=== PATIENT | male | born 1980 | race Caucasian/White ===

== ENCOUNTER → 2017-02-07 | Day surgery (SDC) | payer OTHER, BC ==
--- NOTE | 2017-02-04 11:32 | History and Physical ---
History & Physical Date Feb 04, 2017. Chief Complaint Left knee pain History of Present Illness The patient is a 36 year old male with complaints of left knee pain, swelling, and weakness s/p fall while in [place] on a business trip. Patient fell down the stairs. Reports being unable to perform a straight leg raise, swelling, bruising. Denies prior injury to left lower extremity. Denies numbness, tingling, or calf pain in the lower extremities. Was provided with a knee immobilizer and crutches in the ER in [place]. Past Medical/Surgical History Past Medical History: 1. GERD 2. Obesity Past Surgical History: 1. [place] tooth extraction Famil History: Non-contributory Social History: Patient lives at home with his family in a safe environment, denies ETOH, tobacco, or illegal drug use. Is a retail sales teammate by trade. Additional History Hepatic Disease: No Endocrine Disorder: No Kidney Disease: No Hypertension: No Heart Disease: No Bleeding Tendencies: No Infectious Diseases: No Allergies Coded Allergies: Bacitracin (Verified Allergy, Mild, RASH, 02/04/17) Neomycin (Verified Allergy, Mild, RASH, 02/04/17) Polymyxin B (Verified Allergy, Mild, RASH, 02/04/17) Home Medications Scheduled Multiple Vitamin (Multivitamin), 1 TAB PO DAILY Omeprazole (Prilosec), 1 CAP PO DAILY Miscellaneous Medications None (Patient States No Home Meds) Physical Examination Skin: warm/dry, no rash Eyes: normal inspection, sclerae normal ENT: + pertinent finding (large tonsils, without exudate or erythema) Head: normocephalic, atraumatic Respiratory/Chest: lungs clear, normal breath sounds, no respiratory distress Cardiovascular: regular rate, rhythm, no edema, no murmur Abdomen / GI: normal bowel sounds, non tender Extremities: + pertinent finding (left knee reveals swelling, ecchymosis. Patella high-riding in the trochlea, unable to perform a straight leg raise, deformity noted mid-substance of left patella, ligamentously stable regarding cruciate and collateral ligaments, calf supple/non-tender, hip and ankle atraumatic ) Neurologic/Psych: no motor/sensory deficits, alert, oriented x 3 Addiitonal Comments: Xray of left knee reveals a high riding patella on lateral view, no evidence of fracture or degenerative change Ultrasound of the left knee reveals a mid-substance tear of the left patella Diagnosis Left patellar tendon rupture Plan of Treatment Fred will undergo a Left patellar tendon repair by Dr. John Mendez MD from [facility] on 02/07/17 at the [facility]. He will obtain pre-op labs CBC, Lytes, BUN, Creatinine, EKG at the [facility] outpatient lab today. He will have a phone interview with PAT office today. Post-operatively he will use Lovenox 40mg once daily x 2 weeks and Percocet 5/325mg for post-op pain. He already has crutches. PT will begin 2 days after surgery [address] [facility] and a 2 weeks follow up with Dr. Mendez for suture removal. He will discontinue his NSAIDs now.
[2017-02-04 12:14] LABS: BASO % 0.1 %; BASO ABS # 0.01 K/uL (0-0.2); COMPLETE YES; HEMATOCRIT 45.1 % (42-52); IG% 0.2 %; LYMPH % 15.9 %; LYMPH ABS # 1.78 K/uL (1.2-3.4); MEAN CELL VOLUME 87.4 fL (80-100); MEAN CORPUSCULAR HEMOGLOBIN 31.8 pg (25-34); MEAN CORPUSCULAR HGB CONC 36.4 g/dl (32-36); MEAN PLATELET VOLUME 10.2 fL (7.4-10.4); MONO % 12.9 %; NEUT % 69.9 %; PLATELET COUNT 254 K/uL (130-400); RED BLOOD COUNT 5.16 M/uL (4.7-6.1)
[2017-02-04 12:22] LABS: INR 1.1 (0.9-1.1); PROTHROMBIN TIME (PATIENT) 11.8 SECONDS (9.0-12.0)
[2017-02-04 12:43] LABS: BLOOD UREA NITROGEN 18 mg/dl (7-18); BUN/CREATININE RATIO 19.8 (10-20); CALCIUM 9.1 mg/dl (8.5-10.1); CARBON DIOXIDE 25 mmol/L (21-32); CHLORIDE 106 mmol/L (98-107); CREATININE 0.93 mg/dl (0.60-1.40); GLUCOSE 94 mg/dl (70-99); POTASSIUM 4.1 mmol/L (3.5-5.1); SODIUM 139 mmol/L (136-145)
[2017-02-04 13:59] VITALS: BMI 42.0
[~2017-02-07] VITALS: Ht 180.3 cm; Wt 136.4 kg
[~2017-02-07] MED LIST: ACET-1256 PO; ATROPINE SULFATE 0.1 MG/ML 5ML SYR IV PRN; BUPIVACAINE 0.25% 30 ML VIAL ONE; BUPIVACAINE 0.5 % 5 MG/1 ML MPF 30ML VIAL ONE; DEXAMETHASONE SOD INJ 4 MG/ML VIAL ONE; ENOX40IN SQ; EpHEDrine SULFATE INJ 50 MG/ML AMP IV PRN; FENTANYL CITRATE INJ 50 MCG/1 ML 2 ML VIAL ONE; FLUMAZENIL 0.1 MG/1 ML 10 ML VIAL IV PRN; IBUP-1450 PO; KETOROLAC TROMETHAMINE 15 MG/ML VIAL ONE; KETOROLAC TROMETHAMINE 30 MG/ML VIAL IV. PRN; LABETALOL HCL IV 5 MG/ML 20ML IV ONE; LABETALOL HCL IV 5 MG/ML 20ML IV PRN; LACT10CA3 PO; LACTATED RINGER'S 1000ML 1,000 ML IV SCH; LANSOPRAZOLE PO; LIDOCAINE HCL 2% 2 ML VIAL (20MG/ML) ONE; LIDOCAINE/EPINEPHRINE 1% 20 ML VIAL ONE; METOCLOPRAMIDE HCL INJ 5 MG/ML 2 ML VIAL IV PRN; MIDAZOLAM HCL 1 MG/ML 2ML VIAL ONE; MULT-506 PO; MoRPHine SULFATE 2 MG/ML CARP IV PRN; NALOXONE HCL 0.4 MG/1 ML VIAL/CARP IV PRN; NURSING VERBAL MED ORDER ONE; OMEG10007 PO; ONDANSETRON INJ 2 MG/ML 2 ML VIAL IV PRN; ONDANSETRON INJ 2 MG/ML 2 ML VIAL ONE; OXYC-57 PO; PROMETHAZINE HCL INJ 12.5 MG in SODIUM CHLORIDE 0.9% 50ML 50 ML IV PRN; PROPOFOL IV EMULSION 10 MG/ML 20 ML VIAL IV ONE; SODIUM CHLORIDE 0.9% 1000ML 1,000 ML IV SCH
[2017-02-07 09:37] VITALS: BP 152/110; PULSE 115; TEMP 37.1; O2SAT 97; Ht 180.3 cm; Wt 136.4 kg
[2017-02-07] MEDS: CEFAZOLIN 3000 MG/65 ML D5W IV SCH ×2 (09:57→11:30)
--- NOTE | 2017-02-07 10:46 | History & Physical Bridge Note ---
H&P Re-Evaluation Bridge Note: I have examined the patient, reviewed the History & Physical and in the interval since the performance of the History & Physical I have noted the following changes of clinical significance: No changes noted
--- NOTE | 2017-02-07 11:56 | Discharge Instructions ---
Discharge Instructions Date of Service Feb 07, 2017. Admission Reason for Admission: Left Knee Patellar Tendon Rupture Discharge Discharge Diagnosis / Problem: s/p left patellar tendon repair Discharge Goals Goal(s): Decrease discomfort, Improve function, Increase independence Activity Recommendations Activity Limitations: as noted below Lifting Limitations: until after follow-up appointment Shower/Bathe: keep incision dry Driving or Machine Use: when cleared by Dr. Mendez Weightbearing Status: Left weightbearing (as tolerated with brace on and locked in full extension) . Instructions / Follow-Up Instructions / Follow-Up DIET: * Resume previous diet. MEDICATIONS: * Please take your prescriptions as instructed at your pre-op appointment and/ or see medication discharge instructions listed above. * If concerns develop, call your physician's office at . SPECIAL CARE INSTRUCTIONS: * YOU MAY BE FULL WEIGHTBEAR BEGINNING 02/08/17 WITH BRACE LOCKED IN FULL EXTENSION AND CRUTCHES FOR ASSIST * Ice/Elevate as instructed. * Keep dressing clean, dry, intact. * Your surgical extremity may be discolored due to prepping agents used on the skin. A bluish-green tint is a normal variant and should not cause alarm. Call your doctor at [phone] if: * Temperature above 101 degrees * Pain not relieved by pain medicine ordered * There is increased drainage or redness from any incision * You have any unanswered questions, problems or concerns. FOLLOW UP VISIT: * If not already scheduled, please call the office at to schedule a follow-up appointment. Current Hospital Diet Patient's current hospital diet: Discharge Diet Recommended Diet: Regular Diet Pending Studies Studies pending at discharge: no Medical Emergencies . Who to Call and When: Medical Emergencies: If at any time you feel your situation is an emergency, please call 911 immediately. . Non-Emergent Contact Non-Emergency issues call your: Primary Care Provider . "Provider Documentation" section prepared by John Nicole. . VTE Core Measure Inpt VTE Proph given/why not?: [facility] Drug Monitoring Program Search Results: no issues identified
--- NOTE | 2017-02-07 13:33 | [facility] Post Operative Brief Note ---
Immediate Operative Summary Operative Date Feb 07, 2017. Pre-Operative Diagnosis Left Patellar Tendon Rupture Post-Operative Diagnosis Left Patellar Tendon Rupture Procedure(s) Performed Left Knee Patellar Tendon Repair (Open) Surgeon Dr Mendez Billet Heater Surgeon(s) Nghia Calhoun MD Estimated Blood Loss 10CC Findings Complex tear of the Left Patellar tendon, extending into the medial and lateral retinaculum. Fluids (cc crystalloids) 1200 Specimens A: None per surgeon Drains n/a Anesthesia LMA & Adductor block Complication(s) None Disposition Recovery Room / PACU
--- NOTE | 2017-02-07 13:37 | [facility] Operative Report ---
Operative Report Operative Date Feb 07, 2017. Pre-Operative Diagnosis Left Patellar Tendon Rupture Post-Operative Diagnosis Left Patellar Tendon Rupture Procedure(s) Performed Left Knee Patellar Tendon Repair (Open) Surgeon Dr Mendez Ammonia Print Operator Surgeon(s) Nghia Calhoun MD Estimated Blood Loss 10CC Findings Complex tear of the Left Patellar tendon, extending into the medial and lateral retinaculum. Partial tear off the medial Patella, with horizontal shear of the remainder of the tendon which extended down to and off the Tibial tubercle. Fluids 1200 Specimens A: None per surgeon Drains n/a Anesthesia LMA & Adductor block Complication(s) None Disposition Recovery Room / PACU Indications The patient is a 36 year old male who sustained a left patellar tendon rupture . After a lengthy discussion with her regarding her treatment options of conservative versus surgical intervention, the patient has elected to proceed with surgical intervention. The patient understands the risks of surgery, which include but are not limited to: bleeding, infection, re-operation, damage to nerves and arteries, continued pain, decreased level of activity, knee stiffness, and DVT. The patient understands all of these instructions and explanations, all of their questions have been satisfactorily addressed. The patient has elected to proceed with surgery and the informed consent was signed. Description of Procedure IMPLANTS: 1) 2.9 MM Double loaded JuggerKnot Thayne at Tibia Tubercle (Biomet). 2) 1.5 MM JuggerKnot Thayne at Medial Patella (Biomet). PROCEDURE: The patient was taken to the Operating Room and placed in the supine position on the operating table. After general anesthetic was administered a multidisciplinary time-out was performed identifying my initials on the left lower limb as the correct and operative limb. Prior to the incision being made , 3 grams of intravenous Ancef were given. The left leg was prepped and draped in the standard orthopaedic sterile fashion. The planned longitudinal incision approximately 10 cm, centered about the patellar tendon defect and in the midline was marked from the tibial tubercle to the proximal aspect of the patella. The incision was injected with a 50:50 mixture of 1% Lidocaine plain and 0.5% Marcaine for a total of 10 cc. The skin incision was made down to the patellar tendon fascia and the defect was easily found with noted hematoma. Large skin flaps were made both medially and laterally. The hematoma was evacuated with suction and irrigation. The wound was copiously irrigated. The patellar tendon had partially a. The medial aspect of the patella and had a horizontal shearing effect with the majority of the tendon still attached to the patella but came off distally with a small portion still attached to the fat pad. The hematoma was debrided off the medial aspect of the patella for better expose and anchor placement. The knee capsule was closed with 0 Vicryl's. The medial and lateral retinaculum had #0 Vicryl placed in a [id number]-vples fashion for later tying. The distal portion of the patella was prepped with rongeur and curettes. With the knee in a slightly flexed position a 1.5 mm JuggerKnot anchor was placed medially at the patellar tendon insertion on the patella. Then 1 strand was passed through the remaining distal torn portion of the patellar tendon and the other limb was passed through the proximal aspect of the attached patellar tendon to the patella and used as tension, but later tied together. A 2.9 mm JuggerKnot anchor double loaded was placed in the tibial tubercle in a standard fashion. One limb of each suture was run in a Krakw type fashion up each side of the patellar tendon attempting to capture both the proximal and distal fibers. Each limb was then tied together proximally. The remaining 2 proximal suture limbs were used to tension the patellar tendon down to the tibial tubercle with the leg in full extension. The ends were passed through the most distal aspect of the torn patellar tendon and with the tendon reduced tied. The medial border was further reinforced by running one of the suture limbs proximally and tying it together with the 1.5 mm anchor after it had been tied. There was no tension on the repair with the flexed past 90 degrees. The 0 Vicryl sutures in the retinaculum were sequentially tied. 2-0 Vicryl was used to close the overlying fascia. The wound was copiously irrigated throughout the case. The subcutaneous layer was closed with 3-0 Vicryl. The skin was closed 4-0 Monocryl in a running subcuticular fashion area and Dermabond. Once the Dermabond was dry, the incision was covered with 4x4's, ABD, sterile cast padding, an PRAVEENA, and a range of motion knee brace locked in extension. The sponge and needle counts were correct. POST-OP INSTRUCTIONS: Pain medicine prescription was given pre-operatively to be taken as needed. He will be weight bearing as tolerated with the brace locked in extension on the left lower extremity. The patient will start physical therapy in 2 days. The patient will follow up with me in 10-15 days. I attest to the content of the Intraoperative Record and any orders documented therein. Any exceptions are noted below.
[2017-02-07] MEDS: HYDROmorphone INJ 1 MG/ML SYR IV PRN ×3 (14:44→14:58)
--- NOTE | 2017-02-07 15:21 | Anesthesiology Progress Note ---
Anesthesia Post Op Note Date & Time Feb 07, 2017 at 15:21 Vital Signs Pain Intensity: 4 Vital Signs Past 12 Hours Date Time Temp Pulse Resp B/P (MAP) Pulse Ox O2 Delivery O2 Flow Rate FiO2 02/07/17 15:13 37.0 02/07/17 15:11 153/98 02/07/17 15:08 89 19 02/07/17 15:08 91 19 95 02/07/17 15:07 153/95 02/07/17 15:05 178/100 02/07/17 15:03 90 18 02/07/17 15:03 90 18 170/99 92 02/07/17 15:01 163/102 02/07/17 14:58 85 15 92 02/07/17 14:58 87 15 02/07/17 14:56 163/96 02/07/17 14:53 92 15 02/07/17 14:53 92 15 93 02/07/17 14:52 87 24 96 02/07/17 14:52 88 24 02/07/17 14:51 159/100 02/07/17 14:47 89 18 02/07/17 14:47 89 18 92 02/07/17 14:46 179/86 02/07/17 14:42 91 19 02/07/17 14:42 92 19 97 02/07/17 14:41 173/103 02/07/17 14:37 91 17 02/07/17 14:37 91 17 98 02/07/17 14:36 174/101 02/07/17 14:35 93 20 98 02/07/17 14:35 92 20 02/07/17 14:31 177/117 02/07/17 14:30 94 19 98 02/07/17 14:30 94 19 02/07/17 14:27 183/107 02/07/17 14:25 94 16 02/07/17 14:25 93 16 174/120 98 02/07/17 14:20 101 20 148/104 96 02/07/17 14:20 102 20 02/07/17 14:15 98 16 153/108 99 02/07/17 14:15 98 16 02/07/17 14:11 150/100 02/07/17 14:10 36.8 96 18 150/100 98 Oxymask 10 02/07/17 14:10 96 21 02/07/17 14:10 97 21 153/107 98 02/07/17 09:37 37.1 115 18 152/110 (124) 97 Room Air Notes Mental Status: alert / awake / arousable, participated in evaluation Pt Amnestic to Procedure: Yes Nausea / Vomiting: adequately controlled Pain: adequately controlled Airway Patency, RR, SpO2: stable & adequate BP & HR: stable & adequate Hydration State: stable & adequate Anesthetic Complications: no major complications apparent
[2017-02-07 15:25] VITALS: BP 152/90; PULSE 91; TEMP 36.7; O2SAT 94
[2017-02-07] MEDS: OXYCODONE/ACETAMINOPHEN 5-325 TAB PO PRN ×2 (15:35→16:15)
[2017-02-07 16:00] VITALS: BP 155/88; PULSE 85; O2SAT 98
[2017-02-07 16:25] VITALS: BP 160/78; PULSE 80; O2SAT 98
[2017-02-07 17:25] VITALS: BP 160/72; PULSE 85; TEMP 37.4; O2SAT 95
[2017-02-07 18:25] VITALS: BP 163/86; PULSE 97; TEMP 37.2; O2SAT 95
== END | disposition home or self-care (01) ==
LOC: C.ACU 09:12
PROVIDERS: ATTEND Orthopaedic Surgery Sports Medicine
DX: S76.112A Strain of left quadriceps muscle, fascia and tendon, initial encounter (principal); W10.9XXA Fall (on) (from) unspecified stairs and steps, initial encounter; K21.9 Gastro-esophageal reflux disease without esophagitis; E66.9 Obesity, unspecified; Z79.899 Other long term (current) drug therapy

== ENCOUNTER 2018-10-25 18:59 | Inpatient (IN) ==
[2018-10-25] MEDS ORDERED: SODIUM CHLORIDE 0.9% 1000ML 1,000 ML IV SCH (19:45)
[2018-10-25 20:05] LABS: Basophils # (auto) 0.01 K/uL (0-0.2); Basophils % (auto) 0.1 %; Eosinophils # (auto) 0.07 K/uL (0-0.5); Eosinophils % (auto) 0.6 %; Hematocrit (blood only) 45.7 % (42-52); Hemoglobin 16.6 g/dL (14.0-18.0); Immature Granulocytes # (auto) 0.02 K/uL (0.00-0.02); Immature Granulocytes % (auto) 0.2 %; Lymphocytes # (auto) 1.88 K/uL (1.2-3.4); Lymphocytes % (auto) 15.5 %; Mean Corpuscular Hgb Conc 36.3 g/dL (32-36); Mean Corpuscular Volume 84.8 fL (80-100); Mean Platelet Volume 9.9 fL (7.4-10.4); Monocytes # (auto) 1.42 K/uL (0.11-0.59); Monocytes % (auto) 11.7 %; Neutrophils # (auto) 8.71 K/uL (1.4-6.5); Neutrophils % (auto) 71.9 %; Platelet Count 227 K/uL (130-400); RDW Coefficient of Variation 12.8 % (11.5-14.5); RDW Standard Deviation 39.4 fL (36.4-46.3); Red Blood Count 5.39 M/uL (4.7-6.1); White Blood Count 12.11 K/uL (4.8-10.8)
[2018-10-25 20:15] LABS: Appearance Urine Clear (Clear); Bacteria Urine Automated Negative (Negative); Blood Urine Negative (Negative); Color Urine Orange; Epithelial Cell Urine Auto 0-5 /lpf (0-5); Glucose Urine UA Negative (Negative); Ketones Urine 1+ (Negative); Leukocyte Esterase Urine Trace (Negative); Nitrite Urine Negative (Negative); Protein Urine Negative (Negative); RBC Urine Automated 0-4 /hpf (0-4); Specific Gravity Urine 1.025 (1.000-1.030); Urobilinogen Urine Negative (Negative); pH Urine 5.5 (4.5-7.5)
[2018-10-25 20:18] LABS: Bilirubin Urine Negative (Negative); Ictotest Urine Negative (Negative)
[2018-10-25 20:19] LABS: Albumin Level 3.9 gm/dl (3.4-5.0); BUN Creatinine Ratio 14.7 (10-20); Calcium 9.4 mg/dl (8.5-10.1); Creatinine Clr Calc Pharmacy 154.1 ml/min; Est GFR (African American) 118.9; Est GFR (Non-African American) 102.6; Potassium 3.9 mmol/L (3.5-5.1)
[2018-10-25 20:22] LABS: Bilirubin,Total 1.4 mg/dl (0.2-1); Globulin 3.8 gm/dl (2.5-4.0); Total Protein 7.7 gm/dl (6.4-8.2)
[2018-10-25] MEDS ORDERED: IOVERSOL 100ml IV PRN (20:29)
--- NOTE | 2018-10-25 20:48 | CT Scan Report ---
ABDOMEN AND PELVIS CT WITH IV CONTRAST CT DOSE: 1671.86 mGy.cm HISTORY: Left lower quadrant abdominal pain. TECHNIQUE: Multiaxial CT images of the abdomen and pelvis were performed following the use of intrave nous contrast. A dose lowering technique was utilized adhering to the principles of ALARA. COMPARISON STUDY: None. FINDINGS: The lung bases are clear. No pneumoperitoneum. No pneumatosis. No fractures within the visu alized osseous structures. Hepatic steatosis. The portal vein is patent. The gallbladder, spleen, lef t kidney, and left adrenal gland are unremarkable. A 1 cm fat-containing lesion within the right adre nal gland consistent with a benign myelolipoma. A 7 mm hypodense lesion within the right kidney. This is technically too small to characterize but favors a cyst. No hydronephrosis. No retroperitoneal ly mphadenopathy. There is a bulbous appearance to the tail the pancreas with mild peripancreatic inflam matory change. Therefore, this is consistent with acute pancreatitis. The splenic vein appears patent . Mild inflammatory change/edema tracking along the left paracolic gutter. There is also trace pelvic fluid. This is likely due to the acute pancreatitis. Bladder wall thickening is likely due to underd istention. No evidence for pancreatic necrosis or pseudocyst formation at this time. Questionable thi ckening of the descending colon is likely due to underdistention. No bowel wall thickening or obstruc tion identified. Normal appendix. IMPRESSION: 1. Mild inflammatory change surrounding the bulbous pancreatic tail. This is consistent with acute pa ncreatitis. 2. Trace pelvic free fluid likely secondary to the acute pancreatitis. 3. Hepatic steatosis. 4. Additional findings as described above. Electronically signed by: Selvin De Leon M.D. 10/25/2018 8:47 PM
[2018-10-25] MEDS ORDERED: LACTATED RINGER'S 1,000 ML IV STA (21:24)
--- NOTE | 2018-10-25 22:31 | Emergency Department Note ---
Entered by Linh Licona acting as a scribe for ED Provider Note CHIEF COMPLAINT: Abdominal pain. HISTORY OF PRESENT ILLNESS: The patient is a 37 year old male who presents to the Emergency Room with c omplaints of constant abdominal pain that onset 3 days ago. He notes that the pain developed in his upper abdomen and moved into his lower abdomen. The patient rates his pain as a 3/10 in severity and is exacerbated with movement and coughing. He notes that he typically drinks 1 beer a week but had 6 this past Tuesday. He states that he saw his PCP yesterday for these symptoms and had blood work completed at this time. He states that he received a call this morning about abnormal pancreatic labs and was referred to the ED. The patient notes that he had cold symptoms that onset 1.5 weeks ago. Pt denies LOC, headache, fevers, chills, diaphoresis, visual changes, neck pain, chest pain, breathing difficulties, nausea, vomiting, back pain, melena, hematochezia, urinary symptoms, numbness, weakness, lymphadenopathy, rash, or other complaints. REVIEW OF SYSTEMS: See HPI for pertinent positives and negatives. A total of ten systems were reviewed and were otherwise negative. PMHx/PSHx: Acid reflux and ruptured patella tendon. SOCIAL HISTORY: Patient lives at home. PHYSICAL EXAM: GENERAL: Awake, alert, well-appearing, in no distress HENT: Normocephalic, atraumatic. Oropharynx unremarkable. EYES: PERRL. Normal conjunctiva. Sclera non-icteric. NECK: Inspection normal. Non-tender. Supple. No nuchal rigidity. FROM. No masses. RESPIRATORY: Clear to auscultation. No wheezes. No rales. Normal respiratory effort. CARDIAC: Borderline tachycardic rate. Normal rhythm. No murmurs. No rubs. Extremities warm and well perfused. Pulses equal. No JVD. GI: Soft, non-distended. Left lower quadrant tenderness to palpation. No rebound or guarding. No masses. RECTAL: Deferred. MUSCULOSKELETAL: Atraumatic. Chest examination reveals no tenderness. The back is symmetrical on inspection without obvious abnormality. There is no CVA tenderness to palpation. No joint edema. LOWER EXTREMITIES: Calves are equal size bilaterally and non-tender. No edema. No discoloration. NEURO: Normal sensorium. No sensory or motor deficits noted. SKIN: No rash or jaundice noted. EMERGENCY DEPARTMENT COURSE: 1930: Past medical records reviewed. The patient was evaluated in room A10, and a complete history and physical examination were performed. 1999: Prior records reviewed from [facility] and the patinet's lipase was over 7,000. 2039: The patient has a lipase of 3000 in the ED. 2125: I reviewed the patient's case with Dr. Naveed Vann. He states that he needs IV hydration and monitoring. 2149: I reviewed the patient's case with Dr. Terrell Maldonado Hospitalist - [facility]. He will evaluate the patient for further management. MEDICAL DECISION MAKING: Prior records reviewed. Outpatient laboratory testing revealed a lipase over 7000. Triage Nursing notes reviewed and agree them. The patient's history was concerning for abdominal pain. Differential diagnosis: Etiologies such as appendicitis, diverticulitis, PUD, biliary pathology, UTI, pancreatitis, obstruction, mesenteric ischemia, aortic pathology, infections, inflammatory bowel disease, renal colic, as well as others were entertained. Physical examination findings: As above. ER treatment provided: IV saline hydration The patient declined analgesia On reassessment the patient felt better. Lactated Ringer hydration IV Diagnostics interpreted by me: The labs revealed mild leukocytosis on CBC. Chemistry panel was unremarkable. LFTs normal. Lipase was markedly elevated at 3333. Imaging studies: CT scan of the abdomen pelvis was performed and revealed findings consistent with acute pancreatitis. Inflammation of the tail of the pancreas. Consultation: A consultation was placed with the gastroneurologist on-call, Dr. Lucio. He recommended admission for IV hydration and bowel rest. A consultation was placed with internal medicine. The case was discussed and diagnostics were reviewed. The patient was evaluated in the ER for further treatment. IMPRESSION: Acute pancreatitis. PLAN: Admitted. The scribe's documentation has been prepared under my direction and personally reviewed by me in its entirety. I confirm that the note above accurately reflects all work, treatment, procedures, and medical decision making performed by me. Impression & Plan Acute pancreatitis Past Med/Surg History Medical History Ruptured patellar tendon Acid reflux No pertinent family history Surgical History H/O knee surgery Family History Other No pertinent family history Social History Preferred Language: Serbian Communication Ability: Effective Visual Impairment: No Limitations Hearing Ability: Normal Current Living Situation: Family Feels Safe at Home: Yes Smoking Status: Never smoker Results & Data Vital Signs Vital Signs - 24 hr 10/25/18 19:16 10/25/18 19:36 10/25/18 21:01 Temperature 37.6 C H Temperature Source Oral Sepsis Recent Fever Within 48 Hours No Sepsis Action Taken by Nursing No Action Required Pulse Rate 114 H 85 Respiratory Rate 18 14 Respiratory Effort / Characteristics Non-Labored Spontaneous Respiratory Depth Normal Respiratory Pattern Regular Blood Pressure 161/87 H 160/92 H Blood Pressure Mean 111 114 Blood Pressure Position Lying Pulse Oximetry 96 96 Oxygen Delivery Method Room Air Room Air Room Air Home Medications Current Medication List: was personally reviewed by me Laboratory Data Attestation: I reviewed the patient's lab results. Result diagrams: 10/25/18 19:51 10/25/18 19:51 Lab Results 10/25/18 10/25/18 10/25/18 Range/Units 19:51 19:51 19:52 WBC 12.11 H (4.8-10.8) K/uL RBC 5.39 (4.7-6.1) M/uL Hgb 16.6 (14.0-18.0) g/dL Hct 45.7 (42-52) % MCV 84.8 (80-100) fL MCH 30.8 (25-34) pg MCHC 36.3 H (32-36) g/dL RDW Std Deviation 39.4 (36.4-46.3) fL RDW Coeff of Theo 12.8 (11.5-14.5) % Plt Count 227 (130-400) K/uL MPV 9.9 (7.4-10.4) fL Immature Gran % (Auto) 0.2 % Neut % (Auto) 71.9 % Lymph % (Auto) 15.5 % Yancey % (Auto) 11.7 % Eos % (Auto) 0.6 % Baso % (Auto) 0.1 % Immature Gran # (Auto) 0.02 (0.00-0.02) K/uL Neut # (Auto) 8.71 H (1.4-6.5) K/uL Lymph # (Auto) 1.88 (1.2-3.4) K/uL Yancey # (Auto) 1.42 H (0.11-0.59) K/uL Eos # (Auto) 0.07 (0-0.5) K/uL Baso # (Auto) 0.01 (0-0.2) K/uL Sodium 138 (136-145) mmol/L Potassium 3.9 (3.5-5.1) mmol/L Chloride 104 (98-107) mmol/L Carbon Dioxide 24 (21-32) mmol/L Anion Gap 10.0 (3-11) BUN 14 (7-18) mg/dl Creatinine 0.95 (0.6-1.4) mg/dl Est Cr Clr Drug Dosing 154.1 ml/min Est GFR ( Amer) 118.9 Est GFR (Non-Af Amer) 102.6 BUN/Creatinine Ratio 14.7 (10-20) Glucose 92 (70-99) mg/dl Calcium 9.4 (8.5-10.1) mg/dl Total Bilirubin 1.4 H (0.2-1) mg/dl AST 19 (15-37) U/L ALT 28 (12-78) U/L Alkaline Phosphatase 62 (45-117) U/L Total Protein 7.7 (6.4-8.2) gm/dl Albumin 3.9 (3.4-5.0) gm/dl Globulin 3.8 (2.5-4.0) gm/dl Albumin/Globulin Ratio 1.0 (0.9-2) Lipase 3333 H (73-393) U/L Urine Color [place] Urine Appearance Clear (Clear) Urine pH 5.5 (4.5-7.5) Ur Specific [place] 1.025 (1.000-1.030) Urine Protein Negative (Negative) Urine Glucose (UA) Negative (Negative) Urine Ketones 1+ H (Negative) Urine Blood Negative (Negative) Urine Nitrite Negative (Negative) Urine Bilirubin Negative (Negative) Urine Urobilinogen Negative (Negative) Ur Leukocyte Esterase Trace H (Negative) Urine WBC (Auto) 1-5 (0-5) /hpf Urine RBC (Auto) 0-4 (0-4) /hpf U Hyaline Cast (Auto) 1-5 (0-5) /lpf U Epithel Cells (Auto) 0-5 (0-5) /lpf Urine Bacteria (Auto) Negative (Negative) Administered Medications Lactated Ringer's (Lr) 1,000 mls @ 200 mls/hr IV .Q5H STA Stop: 10/26/18 02:23 Last Admin: 10/25/18 21:38 Dose: 200 mls/hr Documented by: [id number] Ioversol (Optiray 320 100ml) 89 ml IV ONCE PRN PRN Reason: Interaction Checking Stop: 10/29/18 20:28 Last Admin: 10/25/18 20:29 Dose: 89 ml Documented by: [id number] Discontinued Medications Sodium Chloride (Nss 1000ml) 1,000 mls @ 999 mls/hr IV .Q1H1M SCARLETT Stop: 10/25/18 20:45 Last Infusion: 10/25/18 21:06 Dose: 0 mls/hr Documented by: [id number] Admin: 10/25/18 20:00 Dose: 999 mls/hr Documented by: [id number] Imaging Data Radiologist's Impression: Radiology results as stated below per my review and the radiologist's interpretation: ABDOMEN AND PELVIS CT WITH IV CONTRAST CT DOSE: 1671.86 mGy.cm HISTORY: Left lower quadrant abdominal pain. TECHNIQUE: Multiaxial CT images of the abdomen and pelvis were performed following the use of intravenous contrast. A dose lowering technique was utilized adhering to the principles of ALARA. COMPARISON STUDY: None. FINDINGS: The lung bases are clear. No pneumoperitoneum. No pneumatosis. No fractures within the visualized osseous structures. Hepatic steatosis. The portal vein is patent. The gallbladder, spleen, left kidney, and left adrenal gland are unremarkable. A 1 cm fat-containing lesion within the right adrenal gland consistent with a benign myelolipoma. A 7 mm hypodense lesion within the right kidney. This is technically too small to characterize but favors a cyst. No hydronephrosis. No retroperitoneal lymphadenopathy. There is a bulbous appearance to the tail the pancreas with mild peripancreatic inflammatory change. Therefore, this is consistent with acute pancreatitis. The splenic vein appears patent. Mild inflammatory change/edema tracking along the left paracolic gutter. There is also trace pelvic fluid. This is likely due to the acute pancreatitis. Bladder wall thickening is likely due to underdistention. No evidence for pancreatic necrosis or pseudocyst formation at this time. Questionable thickening of the descending colon is likely due to underdistention. No bowel wall thickening or obstruction identified. Normal appendix. IMPRESSION: 1. Mild inflammatory change surrounding the bulbous pancreatic tail. This is consistent with acute pancreatitis. 2. Trace pelvic free fluid likely secondary to the acute pancreatitis. 3. Hepatic steatosis. 4. Additional findings as described above. Electronically signed by: Selvin De Leon M.D. 10/25/2018 8:47 PM Dictated: 10/25/182041 Transcribed: 10/25/182041 Blood Pressure Blood Pressure Findings: Elevated blood pressure Blood Pressure Disposition: further management by hospitalist Discharge Plan Visit Data Chief Complaint: Abdominal Pain Stated Complaint: ABD PAIN ED Provider: Vish Cervantes Discharge Problem: Acute pancreatitis Patient Disposition: Being Evaluated by Hospitalist Forms Stand Alone Forms: Call Back Authorization, [facility] Prescriptions Prescriptions: No Action ranitidine HCl [Zantac] 150 mg Tablet 300 mg PO QAM RF: 0 lansoprazole 30 mg Capsule,Delayed Release(Dr/Ec) 30 mg PO DAILY RF: 0 Referrals Referrals: Ajay Carranza DO [Primary Care Provider] - Discharge Problem: Acute pancreatitis Qualifiers: Pancreatitis type: unspecified pancreatitis type Acute pancreatitis complication: unspecified Qualified Code(s): K85.90 - Acute pancreatitis without necrosis or infection, unspecified The scribe's documentation has been prepared under my direction and personally reviewed by me in its entirety. I confirm that the note above accurately reflects all work, treatment, procedures, and medical decision making performed by me.
--- NOTE | 2018-10-25 23:53 | History & Physical Report ---
Date of Service October 25, 2018 Assessment & Plan (1) Acute pancreatitis: 37-year-old male with history of GERD presents with symptoms and lab findings consistent with acute pancreatitis. Acute pancreatitis Normal saline 200 cc/h Pain controlIV Tylenol 650 every 6 GI consult, appreciate recommendation Considering mild fever, mild white count started the patient empirically on Zosyn If fevers continue or my findings consistent with gallbladder disease, would recommend MRCP GERD IV Pepcid DVT prophylaxis SCDs CODE STATUS Full (2) Acid reflux: History of Present Illness Primary Care Provider: Ajay Carranza DO 37-year-old male with a history of gastric reflux presents with abdominal pain. He states that the pain began yesterday afternoon. He was seen by his PCP and was found to have a lipase of 7000. He describes the pain as a dull epigastric pain. Today the pain has continued and has even migrated down to the left quadrants. Patient denies any fevers, chills. He has been nauseous but he has not had any vomiting. He states that he was at [employer] this weekend and reports drinking 4-5 beers on Tuesday and Tuesday. In addition he was eating lots of meat. He did not take his PPI this weekend. He denies a history of heavy alcohol abuse, he denies a history of gallbladder disease. He denies a history of hypertension, hyperlipidemia or diabetes. Review of system Constitutional; no fevers, chills CV; no chest pain, no palpitations, no shortness of breath Abdomen; abdominal pain as described above Allergies Allergy/AdvReac Type Severity Reaction Status Date / Time bacitracin Allergy Mild RASH Verified 10/25/18 21:15 neomycin Allergy Mild RASH Verified 10/25/18 21:15 polymyxin B Allergy Mild RASH Verified 10/25/18 21:15 adhesive Allergy Unknown IRRITATION Unverified 10/25/18 21:15 RASH WITH TAPE Home Medications Home Medications Medication Instructions Recorded Confirmed Type lansoprazole 30 mg PO DAILY 10/25/18 10/25/18 History ranitidine HCl [Zantac] 300 mg PO QAM 10/25/18 10/25/18 History Past Med/Surg History Medical History Ruptured patellar tendon Acid reflux No pertinent family history Surgical History H/O knee surgery Family History Other No pertinent family history Social History Preferred Language: Khmer Communication Ability: Effective Visual Impairment: No Limitations Hearing Ability: Normal Beliefs That Will Affect Care: Catholic Current Living Situation: Family Feels Safe at Home: Yes Smoking Status: Never smoker Second Hand Exposure: No Hx Alcohol Use: Yes Alcohol type: beer, wine and hard liquor Hx Substance Use: No Review of Systems Review of Systems: All systems reviewed & are unremarkable except as noted in HPI & below Physical Exam Constitutional: WD/WN, vitals as above Eyes: PERRL, conjunctivae normal, anicteric sclerae ENMT: external ear and nose normal, oropharynx normal Neck: trachea midline, no thyromegaly Respiratory: normal respiratory effort, lungs clear to auscultation Cardiovascular: RRR, no murmur, no edema Gastrointestinal (Abdomen): Inspection/Auscultation: normal bowel sounds; abdomen not distended Percussion/Palpation: abdomen soft; no guarding Left upper lower quadrant abdominal pain Musculoskeletal: no cyanosis or clubbing, extremities motor strength 5/5 Skin: no rashes, warm and dry Neurologic: PERRL, EOMI, accommodation nl, no face palsy, no dysarthria Psychiatric: A+Ox3, euthymic affect Results & Data Vital Signs (Past 12 Hours) Vital Signs Temp Pulse Resp BP Pulse Ox 10/25/18 22:01 91 H 18 166/93 H 95 10/25/18 21:01 85 14 160/92 H 96 10/25/18 19:16 37.6 C H 114 H 18 161/87 H 96 Diagnostic Findings ABDOMEN AND PELVIS CT WITH IV CONTRAST CT DOSE: 1671.86 mGy.cm HISTORY: Left lower quadrant abdominal pain. TECHNIQUE: Multiaxial CT images of the abdomen and pelvis were performed following the use of intravenous contrast. A dose lowering technique was utilized adhering to the principles of ALARA. COMPARISON STUDY: None. FINDINGS: The lung bases are clear. No pneumoperitoneum. No pneumatosis. No fractures within the visualized osseous structures. Hepatic steatosis. The portal vein is patent. The gallbladder, spleen, left kidney, and left adrenal gland are unremarkable. A 1 cm fat-containing lesion within the right adrenal gland consistent with a benign myelolipoma. A 7 mm hypodense lesion within the right kidney. This is technically too small to characterize but favors a cyst. No hydronephrosis. No retroperitoneal lymphadenopathy. There is a bulbous appearance to the tail the pancreas with mild peripancreatic inflammatory change. Therefore, this is consistent with acute pancreatitis. The splenic vein appears patent. Mild inflammatory change/edema tracking along the left paracolic gutter. There is also trace pelvic fluid. This is likely due to the acute pancreatitis. Bladder wall thickening is likely due to underdistention. No evidence for pancreatic necrosis or pseudocyst formation at this time. Questionable thickening of the descending colon is likely due to underdistention. No bowel wall thickening or obstruction identified. Normal appendix. IMPRESSION: 1. Mild inflammatory change surrounding the bulbous pancreatic tail. This is consistent with acute pancreatitis. 2. Trace pelvic free fluid likely secondary to the acute pancreatitis. 3. Hepatic steatosis. 4. Additional findings as described above. Electronically signed by: Selvin De Leon M.D. 10/25/2018 8:47 PM Code Status & VTE Plan Code Status Full VTE Prophylaxis Plan VTE Prophylaxis will be ordered: Yes Supervising Physician Co-Signing Physician Notes Attending addendum: I have physically seen this patient, have supervised the medical residents activities, and agree with the H&P unless as otherwise noted. Assessment and Plan: Acute pancreatitis/GERD- NPO. NSS at 200 mils per hour. Empiric Zosyn IV. MRCP next likely test if clinically does not respond. Consult gastroenterology. Famotidine 20 mg IV every 12 hours. Serial laboratories. Remainder of orders notations as noted. (1) Acute pancreatitis Acute pancreatitis complication: unspecified Pancreatitis type: unspecified pancreatitis type Qualified Code(s): K85.90 - Acute pancreatitis without necrosis or infection, unspecified
[2018-10-26] MEDS ORDERED: FAMOTIDINE 20MG/5ML IV PUSH IV STA (00:55)
[2018-10-26] MEDS ORDERED: PIPERACILLIN/TAZOBACTAM 3.375 GM in DEXTROSE 5% 100 ML IV SCH (00:55)
[2018-10-26] MEDS ORDERED: ONDANSETRON INJ 2 MG/ML 2 ML VIAL IV PRN (00:55)
[2018-10-26] MEDS ORDERED: PIPERACILL/TAZOBAC CONSULT ACTIVE PRN (00:55)
[2018-10-26] MEDS ORDERED: FAMOTIDINE 20 MG in SYRINGE 3 ML IV ONE (01:15)
[2018-10-26] MEDS ORDERED: PIPERACILLIN/TAZOBACTAM 4.5 GM in DEXTROSE 5% 100 ML IV ONE (01:15)
[2018-10-26] MEDS: SODIUM CHLORIDE 0.9% 1000ML 1,000 ML IV SCH ×5 (01:31→20:54)
[2018-10-26] MEDS: ACETAMINOPHEN 65 ML IV SCH ×2 (01:32→11:01)
[2018-10-26] MEDS: PIPERACILLIN/TAZOBACTAM 4.5 GM in DEXTROSE 5% 100 ML IV SCH ×3 (06:17→21:19)
[2018-10-26 08:02] LABS: Basophils # (auto) 0.01 K/uL (0-0.2); Basophils % (auto) 0.1 %; Eosinophils # (auto) 0.19 K/uL (0-0.5); Eosinophils % (auto) 2.1 %; Hematocrit (blood only) 42.6 % (42-52); Hemoglobin 15.1 g/dL (14.0-18.0); Immature Granulocytes # (auto) 0.02 K/uL (0.00-0.02); Immature Granulocytes % (auto) 0.2 %; Lymphocytes # (auto) 1.63 K/uL (1.2-3.4); Lymphocytes % (auto) 18.3 %; Mean Corpuscular Hgb Conc 35.4 g/dL (32-36); Mean Corpuscular Volume 86.1 fL (80-100); Monocytes # (auto) 1.42 K/uL (0.11-0.59); Monocytes % (auto) 15.9 %; Neutrophils # (auto) 5.64 K/uL (1.4-6.5); Neutrophils % (auto) 63.4 %; Platelet Count 211 K/uL (130-400); RDW Coefficient of Variation 12.7 % (11.5-14.5); Red Blood Count 4.95 M/uL (4.7-6.1); White Blood Count 8.91 K/uL (4.8-10.8)
[2018-10-26 08:17] LABS: Albumin Level 3.4 gm/dl (3.4-5.0); BUN Creatinine Ratio 14.5 (10-20); Calcium 8.3 mg/dl (8.5-10.1); Creatinine Clr Calc Pharmacy 155.8 ml/min; Est GFR (African American) 120.4; Est GFR (Non-African American) 103.9
[2018-10-26 08:20] LABS: Bilirubin,Total 1.4 mg/dl (0.2-1); Globulin 3.3 gm/dl (2.5-4.0); Total Protein 6.7 gm/dl (6.4-8.2)
[2018-10-26] MEDS ORDERED: FAMOTIDINE 20 MG in SYRINGE 3 ML IV SCH (09:00)
[2018-10-26] MEDS ORDERED: FAMOTIDINE 20MG/5ML IV PUSH IV SCH (09:00)
[2018-10-26] MEDS ORDERED: ACETAMINOPHEN 325 MG TAB PO PRN (10:53)
--- NOTE | 2018-10-26 14:56 | Gastrointestinal Consultation ---
Date of Consultation October 26, 2018 Assessment & Plan (1) Acute pancreatitis: improved. Could be from ETOH and I recommend he be abstinest for several weeks and watch intake thereafter. Trigs normal. Check U/S to look for gallstones. TB 1.4 (no mention of stones nor dilated bile duct on CT) and could be [place]--check direct bilirubin and u/s as noted. If studies negative then also discussed with patient doing EUS as output vs MRI/MRCP. Recommend low fat diet tomorrow if remains stable then continue for few weeks and have patient make GI OV as outpt. GERD---PPI History of Present Illness Reason for Consultation: pancreattisi Requesting Physician: Luis Enrique Chua MD Attending Physician: Luis Enrique Chua MD History of Present Illness cc abd pain HPI Pt states went to ENT 2011 for sore throat and diagnosed with GERD and treated with PPI (currently lansoprazole) since. He drinks 1 ETOH a week with no social events planned and more with social events. On 10/22 had 4 beers and a shot and 10/22 4 beers. Since 10/22 epi pain up to 4/10. Initially he thought was from GERD as he had skipped PPI for 3 days but no improvment with Pepcid AC. Went to walkin clinical 10/24 and I reviwed that note. Lipase ordered 7000 and CMP sami and he was sent to ER for admit. On admit lipase 3333 and CMP ok except TB 1.4. CT a/p pancreatitis of tail, fatty liver. Pt urinating well with greater than 500 out since 0700. He denies abd pain and tolerated clear liquid lunch. Allergies Allergy/AdvReac Type Severity Reaction Status Date / Time bacitracin Allergy Mild RASH Verified 10/25/18 21:15 neomycin Allergy Mild RASH Verified 10/25/18 21:15 polymyxin B Allergy Mild RASH Verified 10/25/18 21:15 adhesive Allergy Unknown IRRITATION Unverified 10/25/18 21:15 RASH WITH TAPE Home Medications Home Medications Medication Instructions Recorded Confirmed Type lansoprazole 30 mg PO DAILY 10/25/18 10/25/18 History ranitidine HCl [Zantac] 300 mg PO QAM 10/25/18 10/25/18 History Patient History Medical History Ruptured patellar tendon Acid reflux No pertinent family history Surgical History H/O knee surgery Family History Other No pertinent family history Social History Preferred Language: Citizen Of [place] Communication Ability: Effective Visual Impairment: No Limitations Hearing Ability: Normal Beliefs That Will Affect Care: Roman Catholic Current Living Situation: Family Feels Safe at Home: Yes Smoking Status: Never smoker Second Hand Exposure: No Hx Alcohol Use: Yes Alcohol type: beer, wine and hard liquor Hx Substance Use: No Review of Systems Review of Systems: All systems reviewed & are unremarkable except as noted in HPI & below Physical Exam Constitutional: WD/WN, vitals as above Eyes: PERRL, conjunctivae normal, anicteric sclerae ENMT: external ear and nose normal, oropharynx normal Neck: normal visual inspection and trachea midline Respiratory: normal respiratory effort, lungs clear to auscultation Cardiovascular: RRR, no murmur, no edema Gastrointestinal (Abdomen): normal bowel sounds, soft, nontender, no hepatosplenomegaly Neurologic: PERRL, EOMI, accommodation nl, no face palsy, no dysarthria Psychiatric: A+Ox3, euthymic affect Results & Data Vital Signs (Past 12 Hours) Vital Signs Temp Pulse Resp BP Pulse Ox 10/26/18 08:19 36.6 C 67 16 138/88 98 (1) Acute pancreatitis Acute pancreatitis complication: unspecified Pancreatitis type: unspecified pancreatitis type Qualified Code(s): K85.90 - Acute pancreatitis without necrosis or infection, unspecified
--- NOTE | 2018-10-26 17:01 | Hospitalist Progress Note ---
Date of Service October 26, 2018 Assessment & Plan (1) Acute pancreatitis: Lipase 7000 as outpatient, down to 1300 today. - Advance diet as tolerated - GI consulted - Appreciate recs - Will get RUQ U/S to look for gallstones & direct bili for Gilbert's syndrome. Outpatient follow up for further testing. GERD - PPI Subjective Feeling much better. Minimal pain in the epigastric region. Review of Systems Review of Systems: All systems reviewed & are unremarkable except as noted in HPI & below Physical Exam Constitutional: WD/WN, vitals as above Eyes: PERRL, conjunctivae normal, anicteric sclerae ENMT: external ear and nose normal, oropharynx normal Neck: trachea midline, no thyromegaly normal visual inspection and trachea midline Respiratory: normal respiratory effort, lungs clear to auscultation Cardiovascular: RRR, no murmur, no edema Gastrointestinal (Abdomen): normal bowel sounds, soft, nontender, no hepatosplenomegaly Inspection/Auscultation: normal bowel sounds; abdomen not distended Percussion/Palpation: abdomen soft; no guarding Musculoskeletal: no cyanosis or clubbing, extremities motor strength 5/5 Skin: no rashes, warm and dry Neurologic: PERRL, EOMI, accommodation nl, no face palsy, no dysarthria Psychiatric: A+Ox3, euthymic affect Results & Data Vital Signs (Past 12 Hours) Vital Signs Temp Pulse Pulse Resp BP Pulse Ox 10/26/18 15:30 36.9 C 67 17 134/83 97 10/26/18 08:19 36.6 C 67 16 138/88 98 (1) Acute pancreatitis Acute pancreatitis complication: unspecified Pancreatitis type: unspecified p ancreatitis type Qualified Code(s): K85.90 - Acute pancreatitis without necrosis or infection, unspecified
[2018-10-26] MEDS: PANTOprazole 40 MG TAB PO SCH (17:46)
--- NOTE | 2018-10-26 20:21 | Ultrasound Report ---
BILIARY ULTRASOUND CLINICAL HISTORY: Pancreatitis. Evaluate for gallstones. COMPARISON STUDY: CT scan dated 10/25/2018 FINDINGS: The pancreas is nonvisualized. The liver was of increased echogenicity, finding consistent with hepatic steatosis. There is no ductal dilatation. No gallstones were identified. There is no gallbladder wall thickening. The common bile duct measures 3 mm. There is no right-sided hydronephrosis. IMPRESSION: 1. Hepatic steatosis 2. No gallstones identified. No evidence of ductal dilatation 3. Nondiagnostic evaluation the pancreas Electronically signed by: Mohinder Good M.D. 10/26/2018 8:20 PM
[2018-10-27] MEDS: PIPERACILLIN/TAZOBACTAM 4.5 GM in DEXTROSE 5% 100 ML IV SCH (05:56)
[2018-10-27 07:10] LABS: Basophils # (auto) 0.01 K/uL (0-0.2); Basophils % (auto) 0.1 %; Eosinophils # (auto) 0.22 K/uL (0-0.5); Eosinophils % (auto) 3.1 %; Hematocrit (blood only) 40.7 % (42-52); Hemoglobin 14.2 g/dL (14.0-18.0); Immature Granulocytes # (auto) 0.01 K/uL (0.00-0.02); Immature Granulocytes % (auto) 0.1 %; Lymphocytes # (auto) 1.59 K/uL (1.2-3.4); Lymphocytes % (auto) 22.2 %; Mean Corpuscular Hgb Conc 34.9 g/dL (32-36); Mean Corpuscular Volume 86.6 fL (80-100); Mean Platelet Volume 9.9 fL (7.4-10.4); Monocytes # (auto) 0.99 K/uL (0.11-0.59); Monocytes % (auto) 13.8 %; Neutrophils # (auto) 4.33 K/uL (1.4-6.5); Neutrophils % (auto) 60.7 %; Platelet Count 212 K/uL (130-400); RDW Coefficient of Variation 12.6 % (11.5-14.5); White Blood Count 7.15 K/uL (4.8-10.8)
[2018-10-27 07:41] LABS: Albumin Level 3.1 gm/dl (3.4-5.0); BUN Creatinine Ratio 9.9 (10-20); Bilirubin Direct 0.2 mg/dl (0-0.2); Calcium 8.4 mg/dl (8.5-10.1); Creatinine Clr Calc Pharmacy 154.2 ml/min; Est GFR (African American) 118.9; Est GFR (Non-African American) 102.6; Potassium 3.9 mmol/L (3.5-5.1)
[2018-10-27 07:43] LABS: Albumin Globulin Ratio 0.9 (0.9-2); Globulin 3.4 gm/dl (2.5-4.0); Total Protein 6.5 gm/dl (6.4-8.2)
[2018-10-27] MEDS: PANTOprazole 40 MG TAB PO SCH (10:17)
--- NOTE | 2018-10-27 16:13 | Discharge Summary ---
Date of Service October 27, 2018 Admission HPI Per Admitting Provider 37-year-old male with a history of gastric reflux presents with abdominal pain. He states that the pain began yesterday afternoon. He was seen by his PCP and was found to have a lipase of 7000. He describes the pain as a dull epigastric pain. Today the pain has continued and has even migrated down to the left quadrants. Patient denies any fevers, chills. He has been nauseous but he has not had any vomiting. He states that he was at [employer] this weekend and reports drinking 4-5 beers on Tuesday and Tuesday. In addition he was eating lots of meat. He did not take his PPI this weekend. He denies a history of heavy alcohol abuse, he denies a history of gallbladder disease. He denies a history of hypertension, hyperlipidemia or diabetes. Review of system Constitutional; no fevers, chills CV; no chest pain, no palpitations, no shortness of breath Abdomen; abdominal pain as described above Principal Diagnosis Pancreatitis - Possible gallstone vs. alcohol induced. Discharge Exam Constitutional WD/WN, vitals as above Eyes PERRL, conjunctivae normal, anicteric sclerae ENMT external ear and nose normal, oropharynx normal Neck trachea midline, no thyromegaly normal visual inspection and trachea midline Respiratory normal respiratory effort, lungs clear to auscultation Cardiovascular RRR, no murmur, no edema Gastrointestinal (Abdomen) normal bowel sounds, soft, nontender, no hepatosplenomegaly Inspection/Auscultation: normal bowel sounds; abdomen not distended Percussion/Palpation: abdomen soft; no guarding Musculoskeletal no cyanosis or clubbing, extremities motor strength 5/5 Skin no rashes, warm and dry Neurologic PERRL, EOMI, accommodation nl, no face palsy, no dysarthria Psychiatric A+Ox3, euthymic affect Discharge Data Allergies Allergy/AdvReac Type Severity Reaction Status Date / Time bacitracin Allergy Mild RASH Verified 10/25/18 21:15 neomycin Allergy Mild RASH Verified 10/25/18 21:15 polymyxin B Allergy Mild RASH Verified 10/25/18 21:15 adhesive Allergy Unknown IRRITATION Unverified 10/25/18 21:15 RASH WITH TAPE Consultations 10/25/18 21:27 ED Decision to Admit Stat 10/26/18 00:55 Consult Gastroenterology Routine Ordered Studies 10/25/18 19:36 CT abd pelvis IV con only Stat 10/26/18 14:31 US abdomen limited Routine Hospital Course (1) Acute pancreatitis: Lipase 7000 as outpatient, down to 600 by discharge. Tbili also elevated to 1.4 on admission; down to normal by discharge. Possibly due to mild alcohol intake (4-5 beers on 2 days) vs. a gallstone that was passed by the time he was admitted. - RUQ u/s did not show any gallstones or dilated CBD. - GI consulted - Outpatient follow up for further testing. - No alcohol and low fat diet x 3-4 weeks. GERD - PPI Total Time Total Time Spent Total Time Spent (In Minutes): 35 Total Time Includes: Examination of the Patient and Communication With Other Providers Discharge Plan Discharge Items Patient Disposition: Home - Self-Care Reason For Visit: PANCREATITIS Discharge Diagnosis: Pancreatitis Discharge Goals: Decrease discomfort and Diagnostic testing Activity: Resume your previous activity Non-emergency contact: Primary Care Provider and Tub Puller Call non-emergency contact if: your symptoms worsen and your pain is not controlled Follow-up/Referrals: Ajay Carranza, [Primary Care Provider] - Anselmo Tavarez [Physician] - (Please see Dr. Tavarez in his office in 3-4 weeks.) Diet: Low Fat Diet Comment: No alcohol until seen by GI. Addtl Provider Instructions: Please avoid fatty foods and do not drink any alcohol until seen by GI doctor. Prescriptions: Continued ranitidine HCl [Zantac] 150 mg Tablet 300 mg PO QAM RF: 0 lansoprazole 30 mg Capsule,Delayed Release(Dr/Ec) 30 mg PO DAILY RF: 0 Stand-Alone Forms: Call Back Authorization, [facility]/Other Patient Handouts: Eat Healthy Discharge Orders: Discharge Order (Routine); Ordered 10/27/18 Ordered By: Luis Enrique Chua Admission Data Admit Date/Time: 10/25/18 23:40 Attending Provider: Luis Enrique Chua Admit Provider: Martinez Cid Primary Care Provider: Ajay Carranza Other Providers: Talat Lucio ; Luis Enrique Chua Service: Medical Other Interventions: Discharge Summary Assessment (RN) Last Done: 10/27/18 12:23 DC Date/Time DO NOT enter until pt leaves facility: 10/27/18 13:54
== END 2018-10-27 13:54 | disposition home or self-care (01) | DRG 440 ==
LOC: ED 18:59 → 3W 23:40 → SUATTDRO 23:40 → 3W 10-26 00:23